=== PATIENT | male | born 1990 | race Hispanic/Latino ===

== ENCOUNTER 2024-09-04 10:47 | Emergency (ER) | payer SELFPAY ==
[~2024-09-04] VITALS: Ht 172.7 cm; Wt 97.5 kg
[2024-09-04 11:12] VITALS: PULSE 98; RESP 18; TEMP 98.2
[2024-09-04 13:19] VITALS: BP 127/77; PULSE 92; RESP 16; O2SAT 95
== END 2024-09-04 13:20 | disposition home or self-care (01) ==
LOC: FSED 11:12
DX: S42.002D Fracture of unspecified part of left clavicle, subsequent encounter for fracture with routine healing (principal); S00.83XD Contusion of other part of head, subsequent encounter; R51.9 Headache, unspecified; V43.52XD Car driver injured in collision with other type car in traffic accident, subsequent encounter; Y92.488 Other paved roadways as the place of occurrence of the external cause
CPT/HCPCS: 70450; 99283